=== PATIENT | female | born 1935 | race Caucasian/White ===

== ENCOUNTER 2024-04-10 12:05 | Emergency (ER) | payer MEDICARE, OTHER ==
--- NOTE | 2024-04-10 12:33 | ED Physician Documentation ---
PD HPI LOWER EXT INJURY - Stated complaint Stated Complaint: LT KNEE PX - Chief complaint Chief Complaint: Ext Problem - Additional information Additional information: 88-year-old female with no pertinent past medical history presents emergency department for left lower extremity swelling. Patient originally went to [facility] and they sent her here to the emergency department to rule out possible DVT in her left leg. Patient recently flew in from [place] yesterday and said that she did have a lot of opportunity to get up and stretch her legs today left lower extremity has gotten significantly more swollen than right lower extremity no history of DVTs or PE. Patient's son is at bedside also reports that she has been having more frequent episodes of urination than normal. Patient got up in the middle the night to void about 8 different times no history of frequent UTIs no dysuria no pelvic pain CVA tenderness or fevers or chills. PD PAST MEDICAL HISTORY - Past Medical History Past Medical History: No - Past Surgical History Past Surgical History: Yes /[employer]: Endometrial ablation - Present Medications Home Medications: Ambulatory Orders Medication Instructions Recorded Confirmed cephALEXin [Keflex] 500 mg PO BID 5 Days #10 cap 04/10/24 - Allergies Allergies/Adverse Reactions: Allergies Allergy/AdvReac Type Severity Reaction Status Date / Time No Known Drug Allergies Allergy Verified 04/10/24 12:22 - Social History Does the pt smoke?: No Smoking Status: Never smoker Does the pt drink ETOH?: No Does the pt have substance abuse?: No - Immunizations Immunizations are current?: Yes - POLST Patient has POLST: No PD ED PE NORMAL - Vitals Vital signs reviewed: Yes - General General: Alert and oriented X 3, No acute distress, Well developed/nourished - Respiratory Respiratory: No respiratory distress - Abdomen Abdomen: Normal bowel sounds, Soft, Non tender, No organomegaly - Back Back: No CVA TTP - Extremities Extremities: Other (LLE swelling, significantly more swollen than RLE, swelling to LLE starts at knee and goes to foot) Results - Vitals Vitals: Vital Signs - 24 hr 04/10/24 04/10/24 04/10/24 12:17 12:38 15:01 Temperature 36.5 C 98.6 C H 36.7 C Heart Rate 99 99 92 Respiratory 18 16 16 Rate Blood Pressure 125/86 H 128/75 140/76 H O2 Saturation 99 97 98 Oxygen O2 Source Room air - Labs Labs: Laboratory Tests 04/10/24 14:35 Urine Color DARK YELLOW Urine Clarity CLOUDY Urine pH 6.0 Ur Specific [place] 1.020 Urine Protein NEGATIVE Urine Glucose (UA) NEGATIVE Urine Ketones 15 H Urine Occult Blood TRACE-INTA Urine Nitrite POSITIVE H Urine Bilirubin NEGATIVE Urine Urobilinogen 1 (NORMAL) Ur Leukocyte Esterase LARGE H Urine RBC 0-5 Urine WBC >25 H Ur Squamous Epith Cells RARE Squamous Urine Bacteria Moderate H Ur Microscopic Review INDICATED Urine Culture Comments INDICATED - Rads (name of study) Left lower extremity ultrasound Relevant Findings:: Final report received, EMP independent interpretation of test, Other (No DVT of the left lower extremity) PD Medical Decision Making - ED course ED course: 88-year-old female presents emergency department for left lower extremity sw elling and pain. A venous duplex was complete for further evaluation she does not appear to have a DVT. I considered a possible septic joint but patient does not have any fevers or chills knee is not warm to the touch she does not have pain out of proportion. Patient also reports that the swelling and pain is actually significant improved in comparison to yesterday when she first got off the airplane. I was that she has this experiencing a significant pain and a flare in her swelling because patient was stuck in a certain position on the airplane for several hours. Urinalysis was also complete his son was worried that patient was having urinary frequency and urgency and she did appear to have a urinary tract infection. She was started on Keflex here in the ER and prescription of Keflex was sent to her preferred pharmacy urine sent for culture as they were notified that we will call her in a few days if she needs to change antibiotics. All questions answered return precautions given patient safe for discharge at this time. Departure - Departure Disposition: 01 Home, Self Care Clinical Impression: UTI (urinary tract infection), Arthritis Instructions: Urinary Tract Infecs Women Prescriptions: cephALEXin [Keflex] 500 mg PO BID 5 Days #10 cap Comments: Thank you for trusting us with your care. We have completed an ultrasound of your left lower extremity and we are not seeing any DVTs at this point in time. Please follow-up with your primary care provider about ongoing left lower extremity swelling as needed make sure that you are elevating above your heart as frequently as possible and you can alternate between Tylenol ibuprofen for any pain or discomfort. You did appear to have a urinary tract infection we have started you on antibiotic called Keflex here in the emergency department and sent a prescription of Keflex to [facility] in [place]. We have sent your urine to the lab for cultures and we will call you in a few days if you need to change antibiotics. Please come back and if you are starting to have any worsening urinary urgency frequency, back pain fevers or chills or any other concerning emergent symptoms. Forms: PCP List Discharge Date/Time: 04/10/24 15:19
[2024-04-10 14:42] LABS: BILIRUBIN,URINE NEGATIVE (NEGATIVE); GLUCOSE, URINE (UA) NEGATIVE (NEGATIVE); KETONES,URINE (UA) 15 mg/dL (NEGATIVE); LEUKOCYTE ESTERASE, URINE LARGE (NEGATIVE); NITRITE,URINE POSITIVE (NEGATIVE); OCCULT BLOOD,URINE TRACE-INTA (NEGATIVE); PROTEIN,URINE NEGATIVE (NEGATIVE); UROBILINOGEN,URINE 1 (NORMAL) E.U./dL (NORMAL)
[2024-04-10 14:43] LABS: CLARITY,URINE CLOUDY (CLEAR)
--- NOTE | 2024-04-10 14:47 | Ultrasound Report ---
PROCEDURE: Duplex Venous Limited INDICATIONS: LLE PAIN AND SWELLING, r/o DVT TECHNIQUE: Real-time imaging, as well as color and pulse Doppler interrogation, were performed of the lower extr emity deep veins from the inguinal ligament to the popliteal fossa. Attempted visualization of the ca lf veins was performed. COMPARISON: None. FINDINGS: The deep veins are normally compressible, and free of intraluminal thrombus. Color and pu lse Doppler demonstrate normal phasic intraluminal flow. There is normal augmentation response to di stal compression maneuver. IMPRESSION: No deep venous thrombosis of the left lower extremity. Reviewed by: Bob Schmitt MD on 04/10/2024 2:46 PM PDT Approved by: Bob Schmitt MD on 04/10/2024 2:46 PM PDT Station ID: [id number]
[2024-04-10 14:49] LABS: BACTERIA,URINE Moderate /HPF (None Seen); RBC,URINE 0-5 /HPF (0-5); SQUAMOUS EPITHELIAL CELL,UR RARE Squamous (<= Few); WBC,URINE >25 /HPF (0-5)
[2024-04-10] MEDS: cephALEXin 250 MG CAPSULE PO STA (14:52)
[2024-04-10 15:08] VITALS: BP 140/76; O2SAT 98
== END 2024-04-10 15:19 | disposition home or self-care (01) ==
LOC: ED 12:05
DX: R60.0 Localized edema (principal); N39.0 Urinary tract infection, site not specified; M19.90 Unspecified osteoarthritis, unspecified site
CPT/HCPCS: 81001; 87086; 87181; 93971; 99284; A9270; 81003